=== PATIENT | male | born 1930 | race Caucasian/White ===

== ENCOUNTER 2016-07-08 09:46 | Inpatient (IN) | payer MEDICARE ==
[~2016-07-08] VITALS: Ht 179.1 cm; Wt 94.4 kg
[~2016-07-08 09:46] MED LIST: AMLO10TA2 PO; APIX2.5T PO; ASPI-515 PO; LEVO50TA5 PO; LISI-170 PO; LOVA20TA2 PO; TAMS-11 PO
[2016-07-08 10:37] VITALS: BP 108/67
[2016-07-08] MEDS ORDERED: ZOLPIDEM 5MG TABLET PO PRN (11:30)
[2016-07-08] MEDS ORDERED: BISACODYL 5 MG EC TABLET PO PRN (11:30)
[2016-07-08] MEDS ORDERED: ACETAMINOPHEN 325 MG TABLET PO PRN (11:30)
[2016-07-08] MEDS ORDERED: ONDANSETRON 2MG/ML, 2ML IVPush PRN (11:30)
[2016-07-08] MEDS ORDERED: BISACODYL 10 MG SUPP PR PRN (11:30)
[2016-07-08 11:55] LABS: BLOOD UREA NITROGEN 18 mg/dL (7-18)
[2016-07-08] MEDS: AMIODARONE 200 MG TABLET PO SCH ×2 (11:57→21:53)
[2016-07-08 12:06] LABS: HEMOGLOBIN 12.7 g/dL (13.7-18.0)
[2016-07-08 14:00] VITALS: BP 101/66
[2016-07-08 20:48] VITALS: BP 118/70
[2016-07-08] MEDS: TAMSULOSIN 0.4 MG CAP.ER.24H PO SCH (21:00)
[2016-07-08] MEDS: LOVASTATIN 40 MG TABLET PO SCH (21:00)
[2016-07-08] MEDS ORDERED: AMIODARONE 200 MG TABLET PO SCH (21:00)
[2016-07-08] MEDS: APIXABAN 2.5 MG TABLET PO SCH (21:52)
[2016-07-09 02:39] VITALS: BP 117/73
[2016-07-09] MEDS: LEVOTHYROXINE 50 MCG TABLET PO SCH (05:53)
[2016-07-09 08:27] VITALS: BP 119/73
[2016-07-09] MEDS ORDERED: AMLODIPINE 5 MG TABLET PO SCH ×2 (09:00→21:00)
[2016-07-09] MEDS: LISINOPRIL 20 MG TABLET PO SCH (09:34)
[2016-07-09] MEDS: APIXABAN 2.5 MG TABLET PO SCH ×2 (09:34→20:19)
[2016-07-09] MEDS: AMIODARONE 200 MG TABLET PO SCH ×2 (09:35→20:19)
[2016-07-09 15:50] VITALS: BP 106/65
[2016-07-09 18:48] VITALS: BP 120/75
[2016-07-09] MEDS: TAMSULOSIN 0.4 MG CAP.ER.24H PO SCH (20:18)
[2016-07-09] MEDS: LOVASTATIN 40 MG TABLET PO SCH (20:19)
[2016-07-10 02:33] VITALS: BP 106/68
[2016-07-10 06:59] VITALS: BP 122/72
[2016-07-10] MEDS: LEVOTHYROXINE 50 MCG TABLET PO SCH (08:35)
[2016-07-10] MEDS: APIXABAN 2.5 MG TABLET PO SCH (08:36)
[2016-07-10] MEDS: AMIODARONE 200 MG TABLET PO SCH (08:36)
[2016-07-10] MEDS: LISINOPRIL 20 MG TABLET PO SCH (08:37)
[2016-07-10] MEDS ORDERED: AMIO200T42 PO ×2 (08:59)
== END 2016-07-10 10:50 | disposition home or self-care (01) | DRG 309 ==
LOC: 5SO 09:46 → DCLOUNGE 07-10 10:30
PROVIDERS: ADMIT Internal Medicine Cardiovascular Disease; ATTEND Internal Medicine Cardiovascular Disease
DX: I48.0 Paroxysmal atrial fibrillation (principal); D68.69 Other thrombophilia; I10 Essential (primary) hypertension; E78.5 Hyperlipidemia, unspecified; E03.9 Hypothyroidism, unspecified; R09.02 Hypoxemia; D64.9 Anemia, unspecified; I45.10 Unspecified right bundle-branch block; Z99.81 Dependence on supplemental oxygen
CPT/HCPCS: 36415; 71020; 80048; 80061; 84439; 84443; 85014; 85018; 93005